=== PATIENT | male | born 1990 | race Two or more races ===

== ENCOUNTER 2018-03-03 23:37 | Emergency (ER) | payer SELFPAY ==
--- NOTE | 2018-03-03 23:43 | EDPHY ---
H & P Source: Patient, EMS Time Seen by Provider: 03/03/18 23:43 HPI/ROS: HPI CHIEF COMPLAINT: M1 hold, gravely disabled HISTORY OF PRESENT ILLNESS: Patient is a 28-year-old male who presents to the emergency room, on M1 hold by EMS, he heart had a mental health evaluation this evening. He appears to be gravely disabled with depression and anxiety. Here in the emergency room he has a flat affect. Appears depressed. Also states he is anxious. Typically gets relief from his anxiety with Haldol. Past Medical History: History depression. Hypertension. Anxiety. Past Surgical History: No recent surgery Social History: Smokes marijuana. Works at a marijuana dispensary. Family History: Noncontributory ROS REVIEW OF SYSTEMS: A comprehensive 10 point review of systems is otherwise negative aside from elements mentioned in the history of present illness. Exam Constitutional very unkept, triage nursing summary reviewed, vital signs reviewed, awake/alert. Eyes normal conjunctivae and sclera, EOMI, PERRLA. HENT normal inspection, atraumatic, moist mucus membranes, no epistaxis, neck supple/ no meningismus, no raccoon eyes. Respiratory clear to auscultation bilaterally, normal breath sounds, no respiratory distress, no wheezing. Cardiovascular rate normal, regular rhythm, no murmur, no edema, distal pulses normal. Gastrointestinal soft, non-tender, no rebound, no guarding, normal bowel sounds, no distension, no pulsatile mass. Genitourinary no CVA tenderness. Musculoskeletal no midline vertebral tenderness, full range of motion, no calf swelling, no tenderness of extremities, no meningismus, good pulses, neurovascularly intact. Skin pink, warm, & dry, no rash, skin atraumatic. Neurologic awake, alert and oriented x 3, AAOx3, moves all 4 extremities equally, motor intact, sensory intact, CN II-XII intact, normal cerebellar, normal vision, normal speech. Psychiatric flat affect, depressed. Anxious. Heme/Lymph/Immune no lymphadenopathy. Differential Diagnosis: Includes but is not limited to in a particular order underlying psychiatric illness including depression, mood disorder, bipolar, schizophrenia, mallika, drug intoxication. Medical Decision Making: Plan for this patient blood draw for medical clearance. Patient is on M1 hold. He has already been evaluated. Seeking placement. Re-evaluation: 0700: signed over to Dr. Reynolds. Pending Placement. No Acute events overnight. (David Ambriz) Constitutional: Initial Vital Signs Temperature (C) 36.7 C 03/04/18 00:00 Heart Rate 70 03/04/18 00:00 Respiratory Rate 16 03/04/18 00:00 Blood Pressure 148/103 H 03/04/18 00:00 O2 Sat (%) 97 03/04/18 00:00 O2 Delivery Mode Room Air Allergies/Adverse Reactions: No Known Allergies Allergy (Unverified 03/04/18 00:15) Home Medications: Medication Instructions Recorded Losartan Potassium 03/04/18 Sertraline HCl 03/04/18 Medical Decision Making ED Course/Re-evaluation: This patient has been turned over to me at change of shift. The psychiatric team is looking for appropriate placement currently. This patient has been accepted at the [facility]. She is stable for transfer and I filled out all the appropriate transfer paperwork (Zander Reynolds) - Data Points Laboratory Results: Laboratory Results 03/03/18 23:45 03/03/18 23:45 03/03/18 03/03/18 23:45 23:45 Smear Review By Jude INIGUEZ MD Urine Color ZORAIDA Urine Appearance MODERATELY TURBID Urine pH 6.0 (5.0-7.5) Ur Specific [place] 1.019 (1.002-1.030) Urine Protein NEGATIVE (NEGATIVE) Urine Ketones TRACE H (NEGATIVE) Urine Blood 1+ H (NEGATIVE) Urine Nitrate NEGATIVE (NEGATIVE) Urine Bilirubin NEGATIVE (NEGATIVE) Urine Urobilinogen 2.0 EU H EU (0.2-1.0) Ur Leukocyte Esterase NEGATIVE (NEGATIVE) Urine RBC 1-3 /hpf /hpf (0-3) Urine WBC 3-5 /hpf H /hpf (0-3) Ur Epithelial Cells TRACE /lpf /lpf (NONE-1+) Urine Mucus 4+ /lpf H /lpf (NONE-1+) Urine Glucose NEGATIVE (NEGATIVE) Medications Given: Losartan Potassium (Cozaar) 50 mg PO DAILY KAMI Stop: 08/31/18 10:29 Last Admin: 03/04/18 11:03 Dose: 50 mg Nicotine Polacrilex (Nicorette) 2 mg B PRN PRN PRN Reason: Nicotine Withdrawal Stop: 08/31/18 10:33 Last Admin: 03/04/18 11:04 Dose: 2 mg Sertraline HCl (Zoloft) 50 mg PO DAILY KAMI Stop: 08/31/18 10:29 Last Admin: 03/04/18 11:04 Dose: 50 mg Discontinued Medications Haloperidol (Haldol) 5 mg PO EDNOW ONE Stop: 03/04/18 09:45 Last Admin: 03/04/18 10:19 Dose: 5 mg Nicotine (Nicoderm Cq) 21 mg TD EDNOW ONE Stop: 03/04/18 09:48 Last Admin: 03/04/18 10:19 Dose: 21 mg Departure - Departure Disposition: Other Psych, Not [place] Clinical Impression: Depression Qualifiers: Depression Type: unspecified Qualified Code(s): F32.9 - Major depressive disorder, single episode, unspecified Condition: Fair Referrals: Patient,NotPresent [Unknown] - As per Instructions
[2018-03-03] MEDS ORDERED: HALOPERIDOL LACT 5 MG/ML INJ ONE (23:51)
[2018-03-03 23:57] LABS: PLATELET COUNT 353 10^3/uL (150-400)
[2018-03-04] MEDS ORDERED: HALOPERIDOL 5 MG TAB PO ONE (09:44)
[2018-03-04] MEDS ORDERED: NICOTINE 21 MG/24 HR PATCH TD ONE (09:47)
[2018-03-04] MEDS ORDERED: SERTRALINE HCL 50 MG TAB PO SCH (10:30)
[2018-03-04] MEDS ORDERED: LOSARTAN POTASSIUM 50 MG TAB PO SCH (10:30)
[2018-03-04] MEDS: NICOTINE POLACRILEX 2 MG GUM B PRN ×2 (11:04→15:38)
[2018-03-04] MEDS ORDERED: NICOTINE POLACRILEX 2 MG GUM B PRN (15:25)
[2018-03-04 18:19] VITALS: BP 129/65
== END 2018-03-04 18:17 ==
DX: F32.9 Major depressive disorder, single episode, unspecified (principal); I10 Essential (primary) hypertension
CPT/HCPCS: 80305; G0480; J1630